=== PATIENT | female | born 1970 | race Caucasian/White ===

== ENCOUNTER 2017-01-14 21:08 | Emergency (ER) | payer BC ==
[2017-01-14 21:20] VITALS: BP 133/74
[2017-01-14] MEDS ORDERED: DOXYcycline CAP(*) 100 MG PO ONE (21:40)
--- NOTE | 2017-01-14 21:45 | ED ---
Skin Complaint - HPI Summary HPI Summary: 46 y/o female her c/o a thick bite. She when [place] in [place] and today she noticed the tick. tried to removed but not entirely. She has no other complaints. - History of Current Complaint Chief Complaint: UCSkin Time Seen by Provider: 01/14/17 21:15 Stated Complaint: TICK IN BACK Hx Last Menstrual Period: 01/03/17 - Allergy/Home Medications Allergies/Adverse Reactions: Allergies Allergy/AdvReac Type Severity Reaction Status Date / Time Sulfa Antibiotics Allergy MIGRAINE Verified 05/14/14 16:06 HEADACHES Home Medications: Home Medications Paroxetine HCl [Paxil] 10 mg PO 01/14/17 [History] PMH/Surg Hx/FS Hx/Imm Hx Previously Healthy: Yes Endocrine/Hematology History: Denies: Hx Diabetes Cardiovascular History: Denies: Hx Hypertension, Hx Pacemaker/ICD History: Denies: Hx Renal Disease Sensory History: Denies: Hx Hearing Aid Psychiatric History: Denies: Hx Panic Disorder - Cancer History Hx Chemotherapy: No Hx Radiation Therapy: No Infectious Disease History: No Infectious Disease History: Denies: Traveled Outside the [place] in Last 30 Days - Social History Alcohol Use: Daily Substance Use Type: Reports: None Smoking Status (MU): Never Smoked Tobacco Review of Systems Constitutional: Negative Eyes: Negative ENT: Negative Cardiovascular: Negative Respiratory: Negative Gastrointestinal: Negative Genitourinary: Negative Musculoskeletal: Negative Skin: Other - Thick bite Neurological: Negative All Other Systems Reviewed And Are Negative: Yes Physical Exam - Summary Physical Exam Summary: Vital signs: reviewed General: Patient is comfortable lying in stretcher with no signs of distress HEENT: within normal limits Lungs: CTA B/L CVS: S1 & S2 present. No murmurs appreciated. ABDOMEN: Soft, non-tender. No signs of distention. No rebound no guarding, and no masses palpated. Bowel sounds are normal. EXTREMITIES: FROM in all major joints, no edema, no cyanosis or clubbing. NEURO: Alert and oriented x 3. No acute neurological deficits. Speech is normal and follows commands. SKIN: Dry and warm. Positive remnant of a thick in the left side of the mid back. Triage Information Reviewed: Yes Vital Signs On Initial Exam: Initial Vitals Temp Pulse Resp BP Pulse Ox 96.8 F 90 18 133/74 99 01/14/17 21:15 01/14/17 21:15 01/14/17 21:15 01/14/17 21:15 01/14/17 21:15 Vital Signs Reviewed: Yes Diagnostics - Vital Signs Vital Signs Temp Pulse Resp BP Pulse Ox 01/14/17 21:15 96.8 F 90 18 133/74 99 - Laboratory Lab Statement: Any lab studies that have been ordered have been reviewed, and results considered in the medical decision making process. Course/Dx - Course Assessment/Plan: 46 y/o female her c/o a thick bite. She [place] and today she noticed the tick. tried to removed but not entirely. She has no other complaints. Tick remnant was removed with a 11 blade. She was given Doxycicline 200 mg for prophylaxis. I discussed all the findings and test results with the patient. Patient was instructed to return to the emergency room immediately if any of the symptoms return or worsens. Plan of care was discussed with the patient and understands and agrees. All questions were answered at patient satisfaction. There were no further complaints or concerns. Lung exam before discharge: CTA B/L. Good air exchange. No wheezing or crackles heard. CVS: S1 and S2 present. No murmurs appreciated. Patient is alert and oriented x 3. Patient is hemodynamically stable. 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
== END 2017-01-14 21:49 | disposition home or self-care (01) ==
LOC: UCEAST 21:08
DX: S20.462A Insect bite (nonvenomous) of left back wall of thorax, initial encounter (principal); W57.XXXA Bitten or stung by nonvenomous insect and other nonvenomous arthropods, initial encounter; Y93.01 Activity, walking, marching and hiking; Y92.821 Forest as the place of occurrence of the external cause; Z88.2 Allergy status to sulfonamides
CPT/HCPCS: 99212; A9270-GY; G0463